=== PATIENT | male | born 1985 | race Caucasian/White ===

== ENCOUNTER 2017-01-08 20:01 | Emergency (ER) | payer OTHER ==
--- NOTE | 2017-01-08 20:06 | EDPHY ---
H & P HPI/ROS: HPI CHIEF COMPLAINT: Medical clearance for fpc, methamphetamine use HISTORY OF PRESENT ILLNESS: This patient very pleasant 31-year-old male significant past medical history for daily methamphetamine use and heroin use, presents emergency room after he may contact with police and is under arrest. He will not give me the reason for being under arrest however he is brought here to the emergency room for methamphetamine use and clearance for fpc. Patient is doing methamphetamine. Does tell me he feels anxious. Otherwise he has no other focal complaints. Denies chest pain or shortness of breath. Denies headache. Past Medical History: No significant medical history Past Surgical History: Significant surgical history Social History: Admits to doing methamphetamine, heroin Family History: Noncontributory ROS REVIEW OF SYSTEMS: A comprehensive 10 point review of systems is otherwise negative aside from elements mentioned in the history of present illness. Exam Constitutional appears well nontoxic, triage nursing summary reviewed, vital signs reviewed, awake/alert. Eyes normal conjunctivae and sclera, EOMI, PERRLA. HENT normal inspection, atraumatic, moist mucus membranes, no epistaxis, neck supple/ no meningismus, no raccoon eyes. Respiratory clear to auscultation bilaterally, normal breath sounds, no respiratory distress, no wheezing. Cardiovascular slightly tachycardic , regular rhythm, no murmur, no edema, distal pulses normal. Gastrointestinal soft, non-tender, no rebound, no guarding, normal bowel sounds, no distension, no pulsatile mass. Genitourinary no CVA tenderness. Musculoskeletal no midline vertebral tenderness, full range of motion, no calf swelling, no tenderness of extremities, no meningismus, good pulses, neurovascularly intact. Skin pink, warm, & dry, no rash, skin atraumatic. Neurologic awake, alert and oriented x 3, AAOx3, moves all 4 extremities equally, motor intact, sensory intact, CN II-XII intact, normal cerebellar, normal vision, normal speech. Psychiatric normal mood/affect. Heme/Lymph/Immune no lymphadenopathy. Differential Diagnosis: Includes but is not limited to in a particular order, heroin abuse, methamphetamine abuse Medical Decision Making: Patient here in emergency room is medically cleared stable vital signs, slightly anxious, does not appear acutely psychotic. Has no focal medical complaint. Medically cleared for fpc. Source: Patient, Police Departure - Departure Disposition: Home, Routine, Self-Care Clinical Impression: Methamphetamine abuse Condition: Good Instructions: Methamphetamine Abuse (ED) Additional Instructions: 1. You are medically cleared for fpc. Referrals: Patient,NotPresent [Primary Care Provider] - As per Instructions
[2017-01-08 20:17] VITALS: BP 133/66; PULSE 105; RESP 20; TEMP 97.9; O2SAT 96
== END 2017-01-08 20:17 | disposition home or self-care (01) ==
LOC: EDUNIT#
DX: F15.10 Other stimulant abuse, uncomplicated (principal)

== ENCOUNTER 2017-07-22 16:28 | Emergency (ER) | payer MEDICAID ==
--- NOTE | 2017-07-22 16:45 | EDPHY ---
H & P Source: Patient, Police Exam Limitations: Intoxication - Medical/Surgical History Hx Asthma: No Hx Chronic Respiratory Disease: No Hx Diabetes: No Hx Cardiac Disease: No Hx Renal Disease: No Hx Cirrhosis: No Hx Alcoholism: No Hx HIV/AIDS: No Hx Splenectomy or Spleen Trauma: No Other PMH: meth use - Social History Smoking Status: Current every day smoker Time Seen by Provider: 07/22/17 16:41 HPI/ROS: HPI: This is a 31-year-old male presents with Chief Complaint: altered Mentation Location:psych Quality: Altered mentation Duration: 1-3 hour prior to arrival Signs and Symptoms: Timing: Acute Severity: Moderate to severe Context: Patient presents via [facility] Police as the campus police officer visualized him on the sidewalk doing unusual dance pattern and talking to himself. The officer and his partner circled around and kept their eye on patient who then made glued gestures to a school bus as it was passing by him. The police officers turned around the car and started to advance towards the patient, he then began to run in the campus police officer tackled the patient to the ground. EMS was called and he was given IM Haldol 5 mg fentanyl and Benadryl. He was very physically and verbally aggressive, shouting profanities and spitting at EMS and the police officers. Upon arrival, he admits to taking PCP. On his person, a discharge summary from [facility] emergency room at 1 :18 p.m. this afternoon for substance abuse disorder. Denies any prior psychiatric illness. Patient is actively hallucinating during examination. When asked what he was seeing, keeps saying, "whoa! whoa!" Modifying Factors: See above Comment: ROS: see HPI; limited due to toxication MEDICAL/SURGICAL/SOCIAL HISTORY: Medical history: Generally healthy. Does not take any regular medications. Surgical history: Denies Social history: Unknown CONSTITUTIONAL: Combative adult white male, awake and alert, no obvious distress HEENT: Atraumatic and normocephalic, PERRL, EOMI. Tympanic membranes clear. Oropharynx clear, no exudate and moist pink mucosa. Airway patent. No lymphadenopathy. No meningismus. Cardiovascular: Normal S1/S2, regular rate, regular rhythm, without murmur rub or gallop. PULMONARY/CHEST: Symmetrical and nontender. Clear to auscultation bilaterally. Good air movement. No accessory muscle usage. ABDOMEN: Soft, nondistended, nontender, no rebound, no guarding, no peritoneal signs, no masses or organomegaly. No CVAT. EXTREMITIES: 2/2 pulses, strength 5/5, no deformities, no clubbing, no cyanosis or edema. NEUROLOGICAL: no focal neuro deficits. Alert to self only. Will follow one step commands with constant prompting. SKIN: Warm and dry, no erythema. no rash. Good capillary refill. PSYCH: Poor eye contact, + flight of ideas, tangential disorganized thought process, poor insight and judgment, + visual hallucinations (Perri Paez) Constitutional: Initial Vital Signs Heart Rate 130 H 07/22/17 16:44 Respiratory Rate 22 H 07/22/17 16:44 Blood Pressure 116/69 07/22/17 16:44 O2 Sat (%) 95 07/22/17 16:44 O2 Delivery Mode Room Air Allergies/Adverse Reactions: No Known Allergies Allergy (Unverified 01/08/17 20:10) Home Medications: Medication Instructions Recorded NK [No Known Home Meds] 01/08/17 Medical Decision Making ED Course/Re-evaluation: Labs and UDS ordered Patient in 4 point restraints after 10 minutes starts yelling and fighting against the restraints. RADHA Sorto ordered. Police at bedside. Patient is clearly intoxicated on PCP; will need to be monitored for safety until more sober and then re-evaluated as suspect PCP delirium. 1700: End of shift. Signed out to Dr. Browning pending mental health evaluation and final disposition. This patient was seen under the supervision of my primary supervising physician. I evaluated care for this patient independently. Patient's presentation, labs, treatment and plan of care were discussed with primary supervising physician. (Perri Paez) 4:00 a.m.- The patient has been observed here for several hours. He is feeling much better he says. He is now more awake and alert and conversant. He says he would like to be discharged from the emergency department. He denies any suicidal ideation or homicidal ideation. He says he will be able to find a place to stay tonight. I will drop his mental health hold as I do not feel he meets criteria at this time. I suspect he was intoxicated from likely PCP earlier. He refuses to provide a urine specimen for us. (Audrey John) 161-this patient was seen and examined by me. On an M1 hold by PD for threatening behavior. He just received Geodon 10 mg IM because of agitation. He is in 4 point restraints and is sleeping comfortably. Oxygen saturation on room air is 89%. The spit mask was removed and oxygen by nasal cannula applied. Restraints removed. 1999-drowsy, able to talk but reluctant. Encouraged to provide urine sample for tox screen. 2299 Signed over care of this patient to Dr. John at shift change. I suspect that this pt does not have a mental illness, but instead has a substance abuse problem. Once his mental status clears, we may be able to lift the mental health hold and discharge him home. (Thalia Browning) Differential Diagnosis: Altered mental status including but not limited to hypoglycemia, infectious process, electrolyte abnormality, head injury and intoxicants. (Perri Paez) - Data Points Laboratory Results: Laboratory Results 07/22/17 17:37 07/22/17 17:37 Medications Given: Discontinued Medications Ziprasidone (Geodon) 10 mg IM ONCE ONE Stop: 07/22/17 18:46 Last Admin: 07/22/17 17:01 Dose: 10 mg Departure - Departure Disposition: Home, Routine, Self-Care Clinical Impression: PCP delirium Condition: Good Instructions: Polysubstance Abuse (ED) Additional Instructions: Please return to the emergency department if your worse in any way. Referrals: [facility] [Clinic] - As per Instructions
[2017-07-22 17:50] LABS: % IMMATURE GRANULYOCYTES 0.4 % (0.0-1.1); ABSOLUTE IMMATURE GRANULOCYTES 0.04 10^3/uL (0.00-0.10); ADD DIFF? NO; ADD MORPH? NO; ADD SCAN? NO; ATYPICAL LYMPHOCYTE FLAG 10 (0-99); FRAGMENT RBC FLAG 0 (0-99); HEMATOCRIT 44.5 % (40.0-51.0); HEMOGLOBIN 15.1 g/dL (13.7-17.5); LEFT SHIFT FLG 0 (0-99); LIPEMIA HEMOLYSIS FLAG 90 (0-99); MEAN CELL HEMOGLOBIN 30.4 pg (27.9-34.1); MEAN CELL HEMOGLOBIN CONCENTR. 33.9 g/dL (32.4-36.7); MEAN CELL VOLUME 89.5 fL (81.5-99.8); MEAN PLATELET VOLUME 9.1 fL (8.7-11.7); PLATELET CLUMPS FLAG 0 (0-99); PLATELET COUNT 260 10^3/uL (150-400); RED BLOOD CELL COUNT 4.97 10^6/uL (4.40-6.38); RED CELL DISTRIBUTION WIDTH 12.9 % (11.5-15.2)
[2017-07-22 18:04] LABS: ANION GAP 12 mEq/L (8-16); CALCIUM 9.8 mg/dL (8.5-10.4); CARBON DIOXIDE 23 mEq/l (22-31); CHLORIDE 105 mEq/L (97-110); CREATININE 1.1 mg/dL (0.7-1.3); ETHANOL SERUM < 10 mg/dL (0-10); GLOMERULAR FILTRATION RATE > 60; GLUCOSE 77 mg/dL (70-100); POTASSIUM 3.7 mEq/L (3.5-5.2); SALICYLATE < 1.0 mg/dL (2.0-20.0); SODIUM 140 mEq/L (134-144)
[2017-07-22] MEDS ORDERED: ZIPRASIDONE MESYLATE 20 MG VIAL IM ONE (18:45)
[2017-07-22 20:48] VITALS: RESP 18
[2017-07-23 00:53] VITALS: BP 107/73; PULSE 53; TEMP 97.5; O2SAT 96
== END 2017-07-23 04:54 | disposition home or self-care (01) ==
LOC: EDUNIT#
DX: F16.921 Hallucinogen use, unspecified with intoxication with delirium (principal); F17.200 Nicotine dependence, unspecified, uncomplicated
CPT/HCPCS: G0480; J3486